=== PATIENT | female | born 1980 | race African-American/Black ===

== ENCOUNTER 2018-02-04 19:28 | Emergency (ER) | payer SELFPAY ==
--- NOTE | 2018-02-04 19:41 | PDOC ---
Rapid Medical Evaluation Chief Complaint: Urinary Problem Time Seen by Provider: 02/04/18 19:40 Medical Evaluation: Allergies Allergy/AdvReac Type Severity Reaction Status Date / Time Penicillins AdvReac Unknown Verified 02/04/18 19:40 02/04/18 19:40 I have performed a brief in-person evaluation of this patient. The patient presents with a chief complaint of: "i think i have uti" , burning, frequency, denies f/c/n/v/d Pertinent physical exam findings: no cvat I have ordered the following: ua, uc, upreg The patient will proceed to the ED for further evaluation. Discharge Disposition - Diagnosis UTI (urinary tract infection) - Referrals - Patient Instructions - Post Discharge Activity
[2018-02-04 19:44] VITALS: BP 166/90; PULSE 84; TEMP 98.4; BMI 29.0
--- NOTE | 2018-02-04 20:20 | PDOC ---
History of Present Illness - General Chief Complaint: Urinary Problem Stated Complaint: PAIN Time Seen by Provider: 02/04/18 19:40 History Source: Patient - History of Present Illness Timing/Duration: reports: other Quality: reports: moderate Past History - Past Medical History Allergies/Adverse Reactions: Allergies Allergy/AdvReac Type Severity Reaction Status Date / Time Penicillins AdvReac Unknown Verified 02/04/18 19:40 Home Medications: Ambulatory Orders No Home Medications 0 dose .ROUTE UTDICT 04/25/14 Nitrofurantoin Monohyd/M-Cryst [Macrobid -] 100 mg PO BID #14 capsule 02/04/18 Anemia: No Asthma: No COPD: No Diabetes: No HTN: No - Surgical History Cholecystectomy: Yes - Family Disease History Family Disease History: Diabetes: Father - Suicide/Smoking/Psychosocial Hx Smoking Status: No Smoking History: Never smoked Have you smoked in the past 12 months: No Number of Cigarettes Smoked Daily: 0 Information on smoking cessation initiated: No Hx Alcohol Use: No Drug/Substance Use Hx: No Substance Use Type: None Review of Systems - Review of Systems Constitutional: No: Chills, Fever ABD/GI: No: Nausea, Vomiting : Yes: Burning, Dysuria, Hematuria. No: Flank Pain *Physical Exam - Vital Signs Last Vital Signs Temp Pulse Resp BP Pulse Ox 98.4 F 84 16 166/90 100 02/04/18 19:40 02/04/18 19:40 02/04/18 19:40 02/04/18 19:40 02/04/18 19:40 - Physical Exam General Appearance: Yes: Appropriately Dressed. No: Apparent Distress HEENT: positive: Normal Voice Neck: positive: Supple Respiratory/Chest: negative: Respiratory Distress Gastrointestinal/Abdominal: positive: Soft. negative: Tender Musculoskeletal: negative: CVA Tenderness Integumentary: positive: Dry, Warm Neurologic: positive: Fully Oriented, Alert, Normal Mood/Affect Medical Decision Making - Medical Decision Making 02/04/18 20:18 37-year-old female, no significant history here with dysuria with hematuria 2 days. No flank pain, nausea, vomiting, fever or chills. No history of kidney stone. No abnormal vaginal discharge. Patient well-appearing and stable with UA w/ 3+ LE. Urine culture sent. DC with antibiotics (no prior sensitivity on records here) 02/04/18 20:53 *DC/Admit/Observation/Transfer Diagnosis at time of Disposition: UTI (urinary tract infection) Qualifiers: Urinary tract infection type: acute cystitis Hematuria presence: with hematuria Qualified Code(s): N30.01 - Acute cystitis with hematuria - Discharge Dispostion Disposition: HOME Condition at time of disposition: Good - Prescriptions Prescriptions: Nitrofurantoin Monohyd/M-Cryst [Macrobid -] 100 mg PO BID #14 capsule - Referrals - Patient Instructions Printed Discharge Instructions: DI for Urinary Tract Infection (UTI) Additional Instructions: Your urine is suggestive of a UTI. We sent a test called urine culture which will show us the name of the bacteria that is causing the infection. You can call for the results in 2-3 days. In the meantime take antibiotics as prescribed - Post Discharge Activity
[2018-02-04 20:24] LABS: HCG,QUALITATIVE URINE NEGATIVE
[2018-02-04 20:25] LABS: URINE APPEARANCE CLOUDY; URINE BILIRUBIN NEGATIVE (<2.0 mg/dL); URINE BLOOD 3+ (NEGATIVE); URINE COLOR YELLOW; URINE GLUCOSE (UA) NEGATIVE (NEGATIVE); URINE KETONE NEGATIVE (NEGATIVE); URINE NITRITE NEGATIVE (NEGATIVE); URINE UROBILINOGEN NEGATIVE mg/dL (0.2-1.0)
[2018-02-04 20:50] LABS: URINE LEUK ESTERASE 3+ (NEGATIVE); URINE PROTEIN 3+ (NEGATIVE)
[2018-02-04 20:51] LABS: URINE MUCUS MANY
== END 2018-02-04 20:54 | disposition home or self-care (01) ==
LOC: JERFT 19:28
DX: N30.01 Acute cystitis with hematuria (principal)
CPT/HCPCS: 81003; 81015; 84703; 87086; 87186; 99281-25

== ENCOUNTER 2019-04-12 17:38 | Emergency (ER) | payer SELFPAY | END 2019-04-12 21:20 | disposition home or self-care (01) | LOC: JER 17:38 ==

== ENCOUNTER 2022-11-15 08:25 | Inpatient (IN) | payer OTHER ==
[2022-11-15 08:39] VITALS: BMI 30.7
[2022-11-15] MEDS ORDERED: LIDOCAINE 5% TOPICAL PATCH TP ONE (08:51)
[2022-11-15] MEDS ORDERED: KETOROLAC TROMETHAMINE 15 MG/ML VIAL IM ONE (08:51)
[2022-11-15] MEDS ORDERED: ACETAMINOPHEN 325 MG TABLET (FP) PO ONE (08:51)
[2022-11-15] MEDS ORDERED: KETOROLAC TROMETHAMINE 15 MG/ML VIAL IVPUSH ONE (09:12)
[2022-11-15] MEDS ORDERED: ACETAMINOPHEN 325 MG TABLET (FP) ONE (09:15)
[2022-11-15] MEDS ORDERED: KETOROLAC TROMETHAMINE 15 MG/ML VIAL ONE (09:15)
[2022-11-15] MEDS ORDERED: LIDOCAINE 5% TOPICAL PATCH ONE (09:15)
[2022-11-15 09:43] LABS: BASO % 1.5 % (0-2.0); EOS % 0.5 % (0-4.5); HEMATOCRIT 23.7 % (32.4-45.2); MCHC 29.4 g/dl (32.0-36.0); MEAN CELL VOLUME 54.5 fl (80-96); MEAN PLT VOLUME 9.1 fl (7.5-11.1); MONO % 6.8 % (3.8-10.2); NEUT % 80.2 % (42.8-82.8); PLATELET COUNT 369 10^3/uL (134-434); RBC 4.35 M/mm3 (3.60-5.2); RDW 20.6 % (11.6-15.6); WHITE BLOOD COUNT 11.4 K/mm3 (4.0-10.0)
[2022-11-15 09:45] LABS: INR 1.26 (0.83-1.09); PROTHROMBIN TIME (PATIENT) 14.5 SEC (9.7-13.0)
[2022-11-15 09:47] LABS: ACTIVATED PTT 28.2 SECONDS (25.2-36.5)
[2022-11-15 10:20] LABS: CALCIUM 8.9 mg/dL (8.5-10.1)
[2022-11-15 10:21] LABS: ALBUMIN 3.6 g/dl (3.4-5.0); BLOOD UREA NITROGEN 17.7 mg/dL (7-18)
[2022-11-15 10:24] LABS: CREATININE 0.9 mg/dL (0.55-1.3)
[2022-11-15 10:26] LABS: BILIRUBIN,TOTAL 0.5 mg/dL (0.2-1); TOT PROT 7.4 g/dl (6.4-8.2)
[2022-11-15 10:29] LABS: ANISOCYTOSIS 3+; MACROCYTOSIS 0; OVALOCYTE 2+
[2022-11-15] MEDS ORDERED: ENOXAPARIN NA (PORCINE) 80 MG/0.8 ML DISP.SYRIN SQ ONE (13:22)
[2022-11-15] MEDS: ENOXAPARIN NA (PORCINE) 80 MG/0.8 ML DISP.SYRIN SQ SCH ×2 (13:35→21:47)
[2022-11-15 14:48] LABS: RETICULOCYTES 1.72 % (0.5-1.5)
[2022-11-15] MEDS ORDERED: IRON SUCROSE INJECTION 200 MG in SODIUM CHLORIDE 90 ML IVPB ONE (15:00)
[2022-11-15] MEDS: ACETAMINOPHEN 325 MG TABLET (FP) PO PRN ×2 (17:33→21:54)
[2022-11-15] MEDS: LIDOCAINE PATCH REMOVAL MC SCH (21:47)
[2022-11-16] MEDS: ENOXAPARIN NA (PORCINE) 80 MG/0.8 ML DISP.SYRIN SQ SCH ×2 (09:14→21:33)
[2022-11-16 09:27] LABS: BASO % 1.3 % (0-2.0); EOS % 1.6 % (0-4.5); HEMATOCRIT 22.2 % (32.4-45.2); LYMPH % 11.9 % (8-40); MCHC 29.8 g/dl (32.0-36.0); MEAN CELL VOLUME 54.3 fl (80-96); MEAN PLT VOLUME 8.3 fl (7.5-11.1); MONO % 6.7 % (3.8-10.2); NEUT % 78.5 % (42.8-82.8); PLATELET COUNT 364 10^3/uL (134-434); RBC 4.09 M/mm3 (3.60-5.2); RDW 20.5 % (11.6-15.6); WHITE BLOOD COUNT 10.3 K/mm3 (4.0-10.0)
[2022-11-16] MEDS: ACETAMINOPHEN 325 MG TABLET (FP) PO PRN ×3 (09:30→20:37)
[2022-11-16 09:35] LABS: MCH 16.2 pg (25.7-33.7)
[2022-11-16 09:37] LABS: HEMOGLOBIN 6.6 GM/dL (10.7-15.3)
[2022-11-16] MEDS ORDERED: IRON SUCROSE INJECTION 200 MG in SODIUM CHLORIDE 90 ML IVPB ONE (10:00)
[2022-11-16 10:01] LABS: ALBUMIN 3.1 g/dl (3.4-5.0); BLOOD UREA NITROGEN 13.4 mg/dL (7-18); PHOSPHOROUS 2.9 mg/dL (2.5-4.9)
[2022-11-16 10:02] LABS: BILIRUBIN,TOTAL 0.5 mg/dL (0.2-1); CALCIUM 8.7 mg/dL (8.5-10.1)
[2022-11-16 10:03] LABS: MAGNESIUM 2.2 mg/dL (1.8-2.4)
[2022-11-16 10:04] LABS: CREATININE 0.7 mg/dL (0.55-1.3)
[2022-11-16 10:38] LABS: ERYTHROCYTE SEDIMENTATION RATE 60 mm/hr (0-20)
[2022-11-16] MEDS: LIDOCAINE PATCH REMOVAL MC SCH (22:28)
[2022-11-16] MEDS: MELATONIN 5 MG TABLETS PO PRN (22:35)
[2022-11-17 09:37] LABS: BASO % 1.3 % (0-2.0); EOS % 0.5 % (0-4.5); HEMATOCRIT 25.6 % (32.4-45.2); HEMOGLOBIN 7.6 GM/dL (10.7-15.3); LYMPH % 13.9 % (8-40); MCHC 29.8 g/dl (32.0-36.0); MEAN PLT VOLUME 8.8 fl (7.5-11.1); MONO % 7.3 % (3.8-10.2); PLATELET COUNT 460 10^3/uL (134-434); RBC 4.49 M/mm3 (3.60-5.2); RDW 22.7 % (11.6-15.6); WHITE BLOOD COUNT 14.7 K/mm3 (4.0-10.0)
[2022-11-17] MEDS: ENOXAPARIN NA (PORCINE) 80 MG/0.8 ML DISP.SYRIN SQ SCH ×2 (09:37→21:14)
[2022-11-17] MEDS ORDERED: IRON SUCROSE INJECTION 200 MG in SODIUM CHLORIDE 90 ML IVPB ONE (10:00)
[2022-11-17 10:01] LABS: CALCIUM 8.9 mg/dL (8.5-10.1)
[2022-11-17 10:02] LABS: ALBUMIN 3.4 g/dl (3.4-5.0); BLOOD UREA NITROGEN 10.4 mg/dL (7-18)
[2022-11-17 10:05] LABS: CREATININE 0.8 mg/dL (0.55-1.3)
[2022-11-17 10:07] LABS: BILIRUBIN,TOTAL 0.5 mg/dL (0.2-1); TOT PROT 7.6 g/dl (6.4-8.2)
[2022-11-17] MEDS ORDERED: LORazepam 2 MG/ML SDV VIAL IVPUSH ONE (14:15)
[2022-11-17] MEDS: POLYETHYLENE GLYCOL (HEALTHYLAX) 3350 17 GM PACKET PO SCH (14:24)
[2022-11-17] MEDS ORDERED: DOCUSATE SODIUM 100 MG CAPSULE (FP) PO ONE (20:47)
[2022-11-17] MEDS ORDERED: POLYETHYLENE GLYCOL (HEALTHYLAX) 3350 17 GM PACKET PO SCH (21:00)
[2022-11-17] MEDS: LIDOCAINE PATCH REMOVAL MC SCH (21:15)
[2022-11-18] MEDS: ACETAMINOPHEN 325 MG TABLET (FP) PO PRN (04:23)
[2022-11-18 09:14] LABS: HEMOGLOBIN 7.2 GM/dL (10.7-15.3); MEAN CELL VOLUME 57.9 fl (80-96); MEAN PLT VOLUME 9.1 fl (7.5-11.1); PLATELET COUNT 464 10^3/uL (134-434); RBC 4.15 M/mm3 (3.60-5.2); RDW 22.5 % (11.6-15.6); WHITE BLOOD COUNT 11.6 K/mm3 (4.0-10.0)
[2022-11-18 09:15] LABS: MCH 17.3 pg (25.7-33.7)
[2022-11-18 09:38] LABS: BLOOD UREA NITROGEN 13.2 mg/dL (7-18); CALCIUM 8.8 mg/dL (8.5-10.1)
[2022-11-18 09:41] LABS: CREATININE 0.8 mg/dL (0.55-1.3)
[2022-11-18 09:43] LABS: BILIRUBIN,TOTAL 0.4 mg/dL (0.2-1)
[2022-11-18] MEDS: ENOXAPARIN NA (PORCINE) 80 MG/0.8 ML DISP.SYRIN SQ SCH ×2 (11:06→21:01)
[2022-11-18] MEDS: POLYETHYLENE GLYCOL (HEALTHYLAX) 3350 17 GM PACKET PO SCH (11:07)
[2022-11-18] MEDS: LIDOCAINE PATCH REMOVAL MC SCH (21:00)
[2022-11-19] MEDS: MELATONIN 5 MG TABLETS PO PRN ×2 (01:00→21:16)
[2022-11-19 09:00] LABS: HEMATOCRIT 24.8 % (32.4-45.2); HEMOGLOBIN 7.4 GM/dL (10.7-15.3); MCHC 29.8 g/dl (32.0-36.0); MEAN CELL VOLUME 58.2 fl (80-96); PLATELET COUNT 518 10^3/uL (134-434); RBC 4.27 M/mm3 (3.60-5.2); RDW 22.6 % (11.6-15.6); WHITE BLOOD COUNT 11.3 K/mm3 (4.0-10.0)
[2022-11-19 09:05] LABS: MCH 17.3 pg (25.7-33.7)
[2022-11-19] MEDS: POLYETHYLENE GLYCOL (HEALTHYLAX) 3350 17 GM PACKET PO SCH (10:02)
[2022-11-19] MEDS: ENOXAPARIN NA (PORCINE) 80 MG/0.8 ML DISP.SYRIN SQ SCH (10:04)
[2022-11-19 10:38] LABS: BILIRUBIN,TOTAL 0.5 mg/dL (0.2-1); CALCIUM 8.8 mg/dL (8.5-10.1); TOT PROT 7.2 g/dl (6.4-8.2)
[2022-11-19 10:39] LABS: CREATININE 0.8 mg/dL (0.55-1.3); MAGNESIUM 2.3 mg/dL (1.8-2.4); PHOSPHOROUS 3.9 mg/dL (2.5-4.9)
[2022-11-19] MEDS ORDERED: oxyCODONE HCL 5 MG TABLET PO PRN (14:05)
[2022-11-19] MEDS ORDERED: HEPARIN NA (PORCINE) 5,000 UNITS/ML 1ML VIAL IVPUSH PRN ×2 (14:27)
[2022-11-19] MEDS: HEPARIN INFUSION - 25,000 UNITS/500 ML INFUS.BAG IVPB SCH (15:48)
[2022-11-19] MEDS: ACETAMINOPHEN 325 MG TABLET (FP) PO PRN (21:15)
[2022-11-19] MEDS: LIDOCAINE PATCH REMOVAL MC SCH (21:18)
[2022-11-19] MEDS: HEPARIN NA (PORCINE) 5,000 UNITS/ML 1ML VIAL IVPUSH PRN (23:02)
[2022-11-20] MEDS: HEPARIN NA (PORCINE) 5,000 UNITS/ML 1ML VIAL IVPUSH PRN ×3 (06:53→23:11)
[2022-11-20 09:36] LABS: HEMATOCRIT 25.5 % (32.4-45.2); HEMOGLOBIN 7.7 GM/dL (10.7-15.3); MCHC 30.1 g/dl (32.0-36.0); MEAN CELL VOLUME 58.7 fl (80-96); MEAN PLT VOLUME 9.3 fl (7.5-11.1); PLATELET COUNT 493 10^3/uL (134-434); RBC 4.35 M/mm3 (3.60-5.2); RDW 23.4 % (11.6-15.6); WHITE BLOOD COUNT 9.3 K/mm3 (4.0-10.0)
[2022-11-20 09:42] LABS: MCH 17.7 pg (25.7-33.7)
[2022-11-20] MEDS: POLYETHYLENE GLYCOL (HEALTHYLAX) 3350 17 GM PACKET PO SCH (10:05)
[2022-11-20] MEDS: PANTOPRAZOLE SODIUM 40 MG VIAL IVPUSH SCH (11:05)
[2022-11-20] MEDS: HEPARIN INFUSION - 25,000 UNITS/500 ML INFUS.BAG IVPB SCH (14:23)
[2022-11-20] MEDS ORDERED: ALPRAZolam 1 MG TABLET PO PRN (18:00)
[2022-11-21] MEDS: PANTOPRAZOLE SODIUM 40 MG VIAL IVPUSH SCH (09:00)
[2022-11-21] MEDS: POLYETHYLENE GLYCOL (HEALTHYLAX) 3350 17 GM PACKET PO SCH (09:08)
[2022-11-21] MEDS ORDERED: PROPOFOL 20 ML ONE (09:46)
[2022-11-21] MEDS ORDERED: MIDAZOLAM HCL 2 MG/2 ML SINGLE DOSE VIAL ONE (09:47)
[2022-11-21] MEDS ORDERED: ALTEPLASE (CATHFLO) 2 MG/2 ML VIAL NR ONE (10:00)
[2022-11-21] MEDS ORDERED: BUPIVACAINE HCL/PF 0.5% (5MG/ML) 10 ML VIAL ONE (10:09)
[2022-11-21] MEDS ORDERED: LIDOCAINE HCL 1%, 10 MG/ML (20ML VIAL) ONE (10:09)
[2022-11-21] MEDS ORDERED: POVIDONE-IODINE OINTMENT 10% - 28.4 GM TUBE ONE (10:10)
[2022-11-21] MEDS ORDERED: DEXAMETHASONE SOD PHOSPHATE 4 MG/1 ML VIAL ONE ×2 (10:56→11:46)
[2022-11-21] MEDS ORDERED: ceFAZolin SODIUM 1 GM VIAL ONE (10:56)
[2022-11-21] MEDS ORDERED: ceFAZolin SODIUM 1 GM VIAL IVPB ONE (10:58)
[2022-11-21] MEDS ORDERED: PROPOFOL 40 ML ONE (11:02)
[2022-11-21] MEDS ORDERED: HEPARIN NA (PORCINE) 5,000 UNITS/ML 1ML VIAL ONE (11:08)
[2022-11-21] MEDS ORDERED: ALTEPLASE (CATHFLO) 2 MG/2 ML VIAL CVP ONE (11:42)
[2022-11-21] MEDS ORDERED: LIDOCAINE HCL 1%, 10 MG/ML (20ML VIAL) NR ONE ×2 (11:43)
[2022-11-21] MEDS ORDERED: BUPIVACAINE HCL/PF 0.5% (5MG/ML) 10 ML VIAL NR ONE ×2 (11:44)
[2022-11-21] MEDS ORDERED: HEPARIN NA (PORCINE) 5,000 UNITS/ML 1ML VIAL SQ ONE (11:44)
[2022-11-21] MEDS ORDERED: ONDANSETRON 4 MG/2 ML VIAL ONE (11:46)
[2022-11-21] MEDS ORDERED: PROMETHAZINE HCL 25 MG/1 ML VIAL IVPUSH PRN (12:02)
[2022-11-21] MEDS ORDERED: ONDANSETRON 4 MG/2 ML VIAL IVPUSH PRN (12:02)
[2022-11-21] MEDS ORDERED: HEPARIN NA (PORCINE) 5,000 UNITS/ML 1ML VIAL IVPUSH PRN ×2 (12:09)
[2022-11-21] MEDS: HEPARIN NA (PORCINE) 5,000 UNITS/ML 1ML VIAL IVPUSH PRN ×2 (12:14→12:15)
[2022-11-21] MEDS: HEPARIN INFUSION - 25,000 UNITS/500 ML INFUS.BAG IVPB SCH ×2 (12:15→19:02)
[2022-11-21] MEDS ORDERED: LACTATED RINGERS SOLUTION 1,000 ML IV SCH (12:15)
[2022-11-21] MEDS ORDERED: ACETAMINOPHEN 325 MG TABLET (FP) PO PRN (12:24)
[2022-11-21 18:36] LABS: HEMATOCRIT 24.4 % (32.4-45.2); HEMOGLOBIN 7.2 GM/dL (10.7-15.3); MCHC 29.6 g/dl (32.0-36.0); MEAN CELL VOLUME 59.8 fl (80-96); MEAN PLT VOLUME 8.4 fl (7.5-11.1); PLATELET COUNT 496 10^3/uL (134-434); RBC 4.08 M/mm3 (3.60-5.2); WHITE BLOOD COUNT 12.7 K/mm3 (4.0-10.0)
[2022-11-21 18:41] LABS: MCH 17.7 pg (25.7-33.7)
[2022-11-21 18:51] LABS: ALBUMIN 2.8 g/dl (3.4-5.0); CALCIUM 8.7 mg/dL (8.5-10.1)
[2022-11-21 18:53] LABS: BLOOD UREA NITROGEN 11.7 mg/dL (7-18)
[2022-11-21 18:56] LABS: CREATININE 0.9 mg/dL (0.55-1.3)
[2022-11-21 18:57] LABS: BILIRUBIN,TOTAL 0.7 mg/dL (0.2-1); TOT PROT 6.8 g/dl (6.4-8.2)
[2022-11-22] MEDS: MELATONIN 5 MG TABLETS PO PRN ×2 (02:54→23:24)
[2022-11-22] MEDS: HEPARIN NA (PORCINE) 5,000 UNITS/ML 1ML VIAL IVPUSH PRN (03:27)
[2022-11-22] MEDS ORDERED: IRON SUCROSE INJECTION 100 MG in SODIUM CHLORIDE 95 ML IVPB ONE (08:02)
[2022-11-22] MEDS ORDERED: HEPARIN NA (PORCINE) 5,000 UNITS/ML 1ML VIAL IVPUSH ONE (08:04)
[2022-11-22] MEDS ORDERED: HEPARIN NA (PORCINE) 5,000 UNITS/ML 1ML VIAL IVPUSH PRN ×2 (08:04)
[2022-11-22 09:20] LABS: HEMATOCRIT 24.1 % (32.4-45.2); MCHC 29.2 g/dl (32.0-36.0); MEAN CELL VOLUME 61.3 fl (80-96); MEAN PLT VOLUME 8.8 fl (7.5-11.1); PLATELET COUNT 504 10^3/uL (134-434); RBC 3.93 M/mm3 (3.60-5.2); RDW 25.9 % (11.6-15.6); WHITE BLOOD COUNT 12.7 K/mm3 (4.0-10.0)
[2022-11-22 09:26] LABS: MCH 17.9 pg (25.7-33.7)
[2022-11-22 09:33] LABS: CALCIUM 8.6 mg/dL (8.5-10.1)
[2022-11-22 09:37] LABS: CREATININE 0.7 mg/dL (0.55-1.3)
[2022-11-22] MEDS: HEPARIN INFUSION - 25,000 UNITS/500 ML INFUS.BAG IVPB SCH (10:00)
[2022-11-22] MEDS ORDERED: APIXABAN 5 MG TABLET PO SCH (10:00)
[2022-11-22] MEDS: POLYETHYLENE GLYCOL (HEALTHYLAX) 3350 17 GM PACKET PO SCH (10:25)
[2022-11-22] MEDS: PANTOPRAZOLE SODIUM 40 MG VIAL IVPUSH SCH (11:00)
[2022-11-22 11:12] VITALS: RESP 18
[2022-11-22 12:25] LABS: ALBUMIN 2.8 g/dl (3.4-5.0)
[2022-11-22 12:27] LABS: BILIRUBIN,DIRECT 0.2 mg/dL (0.0-0.2)
[2022-11-22 12:30] LABS: BILIRUBIN,TOTAL 0.2 mg/dL (0.2-1); TOT PROT 6.4 g/dl (6.4-8.2)
[2022-11-22 19:25] LABS: HEMATOCRIT 25.9 % (32.4-45.2); HEMOGLOBIN 7.9 GM/dL (10.7-15.3); MCHC 30.3 g/dl (32.0-36.0); MEAN CELL VOLUME 63.7 fl (80-96); PLATELET COUNT 548 10^3/uL (134-434); RBC 4.07 M/mm3 (3.60-5.2); RDW 31.9 % (11.6-15.6); WHITE BLOOD COUNT 12.9 K/mm3 (4.0-10.0)
[2022-11-22 19:27] LABS: MCH 19.3 pg (25.7-33.7)
[2022-11-22 22:34] LABS: HEMATOCRIT 25.2 % (32.4-45.2); HEMOGLOBIN 7.6 GM/dL (10.7-15.3); MCHC 30.2 g/dl (32.0-36.0); MEAN CELL VOLUME 63.9 fl (80-96); MEAN PLT VOLUME 8.5 fl (7.5-11.1); PLATELET COUNT 517 10^3/uL (134-434); RBC 3.95 M/mm3 (3.60-5.2); RDW 31.2 % (11.6-15.6); WHITE BLOOD COUNT 11.7 K/mm3 (4.0-10.0)
[2022-11-22 22:36] LABS: MCH 19.3 pg (25.7-33.7)
[2022-11-23] MEDS: HEPARIN INFUSION - 25,000 UNITS/500 ML INFUS.BAG IVPB SCH (09:39)
[2022-11-23 09:41] LABS: HEMATOCRIT 26.5 % (32.4-45.2); MCH 19.2 pg (25.7-33.7); MCHC 30.1 g/dl (32.0-36.0); MEAN CELL VOLUME 63.7 fl (80-96); MEAN PLT VOLUME 8.4 fl (7.5-11.1); PLATELET COUNT 515 10^3/uL (134-434); RBC 4.16 M/mm3 (3.60-5.2); RDW 31.1 % (11.6-15.6); WHITE BLOOD COUNT 11.2 K/mm3 (4.0-10.0)
[2022-11-23] MEDS: PANTOPRAZOLE SODIUM 40 MG VIAL IVPUSH SCH (09:44)
[2022-11-23] MEDS: POLYETHYLENE GLYCOL (HEALTHYLAX) 3350 17 GM PACKET PO SCH (09:44)
[2022-11-23 10:12] LABS: ALBUMIN 2.7 g/dl (3.4-5.0); BLOOD UREA NITROGEN 11.2 mg/dL (7-18); CALCIUM 8.7 mg/dL (8.5-10.1)
[2022-11-23 10:14] LABS: CREATININE 0.8 mg/dL (0.55-1.3)
[2022-11-23 10:16] LABS: BILIRUBIN,TOTAL 0.2 mg/dL (0.2-1); TOT PROT 6.2 g/dl (6.4-8.2)
[2022-11-23] MEDS ORDERED: IRON SUCROSE INJECTION 100 MG in SODIUM CHLORIDE 95 ML IVPB ONE (12:00)
[2022-11-24] MEDS: HEPARIN INFUSION - 25,000 UNITS/500 ML INFUS.BAG IVPB SCH (07:21)
[2022-11-24] MEDS: POLYETHYLENE GLYCOL (HEALTHYLAX) 3350 17 GM PACKET PO SCH (09:15)
[2022-11-24] MEDS: PANTOPRAZOLE SODIUM 40 MG VIAL IVPUSH SCH (09:15)
[2022-11-24 09:25] LABS: HEMATOCRIT 29.9 % (32.4-45.2); HEMOGLOBIN 8.8 GM/dL (10.7-15.3); MCHC 29.3 g/dl (32.0-36.0); MEAN CELL VOLUME 65.5 fl (80-96); MEAN PLT VOLUME 9.1 fl (7.5-11.1); PLATELET COUNT 631 10^3/uL (134-434); RBC 4.57 M/mm3 (3.60-5.2); WHITE BLOOD COUNT 10.5 K/mm3 (4.0-10.0)
[2022-11-24 09:26] LABS: MCH 19.2 pg (25.7-33.7)
[2022-11-24] MEDS ORDERED: BISACODYL 5 MG TABLET.DR (FP) PO ONE (16:00)
[2022-11-24] MEDS ORDERED: PEG 3350/NA SULF BICARB CL/KCL 4000 ML SOLN.RECON PO ONE (17:00)
[2022-11-25 09:42] LABS: EOS % 1.1 % (0-4.5); HEMATOCRIT 28.7 % (32.4-45.2); LYMPH % 15.7 % (8-40); MCH 20.4 pg (25.7-33.7); MCHC 31.2 g/dl (32.0-36.0); MEAN CELL VOLUME 65.4 fl (80-96); MEAN PLT VOLUME 8.4 fl (7.5-11.1); MONO % 6.4 % (3.8-10.2); NEUT % 74.8 % (42.8-82.8); PLATELET COUNT 574 10^3/uL (134-434); RBC 4.38 M/mm3 (3.60-5.2); WHITE BLOOD COUNT 9.3 K/mm3 (4.0-10.0)
[2022-11-25 09:47] LABS: INR 1.22 (0.83-1.09); PROTHROMBIN TIME (PATIENT) 14.1 SEC (9.7-13.0)
[2022-11-25 09:50] LABS: ACTIVATED PTT 33.2 SECONDS (25.2-36.5)
[2022-11-25] MEDS: POLYETHYLENE GLYCOL (HEALTHYLAX) 3350 17 GM PACKET PO SCH (10:07)
[2022-11-25] MEDS: PANTOPRAZOLE SODIUM 40 MG VIAL IVPUSH SCH (10:08)
[2022-11-25 10:14] LABS: CALCIUM 9.1 mg/dL (8.5-10.1)
[2022-11-25 10:15] LABS: BLOOD UREA NITROGEN 8.1 mg/dL (7-18)
[2022-11-25 10:16] LABS: ANISOCYTOSIS 3+; MACROCYTOSIS 0; OVALOCYTE 1+
[2022-11-25 10:18] LABS: CREATININE 0.8 mg/dL (0.55-1.3)
[2022-11-25] MEDS ORDERED: ACETAMINOPHEN 325 MG TABLET (FP) PO PRN (13:04)
[2022-11-25] MEDS: ACETAMINOPHEN 325 MG TABLET (FP) PO PRN ×2 (13:26→22:17)
[2022-11-25] MEDS: HEPARIN INFUSION - 25,000 UNITS/500 ML INFUS.BAG IVPB SCH (13:42)
[2022-11-25 13:54] LABS: HEMATOCRIT 28.3 % (32.4-45.2); HEMOGLOBIN 8.6 GM/dL (10.7-15.3); MCHC 30.4 g/dl (32.0-36.0); MEAN CELL VOLUME 65.8 fl (80-96); MEAN PLT VOLUME 8.5 fl (7.5-11.1); PLATELET COUNT 562 10^3/uL (134-434); RDW 33.4 % (11.6-15.6); WHITE BLOOD COUNT 10.5 K/mm3 (4.0-10.0)
[2022-11-26] MEDS: HEPARIN INFUSION - 25,000 UNITS/500 ML INFUS.BAG IVPB SCH ×2 (00:10→16:26)
[2022-11-26] MEDS: POLYETHYLENE GLYCOL (HEALTHYLAX) 3350 17 GM PACKET PO SCH (10:19)
[2022-11-26 10:21] LABS: HEMATOCRIT 30.5 % (32.4-45.2); MCH 19.6 pg (25.7-33.7); MCHC 29.5 g/dl (32.0-36.0); MEAN CELL VOLUME 66.4 fl (80-96); MEAN PLT VOLUME 9.1 fl (7.5-11.1); PLATELET COUNT 550 10^3/uL (134-434); RBC 4.59 M/mm3 (3.60-5.2); RDW 34.8 % (11.6-15.6); WHITE BLOOD COUNT 11.6 K/mm3 (4.0-10.0)
[2022-11-26] MEDS: PANTOPRAZOLE SODIUM 40 MG VIAL IVPUSH SCH (11:00)
[2022-11-26 18:30] VITALS: BP 142/73; PULSE 81; TEMP 98
[2022-11-28 13:07] LABS: APTT 27.7 sec (.); B2-GLYCOPROTEIN IGA <10 SAU (.); B2-GLYCOPROTEIN IGG <10 SGU (.); B2-GLYCOPROTEIN IGM <10 SMU (.); CARDIOLIPIN AB IGA <10 APL (.); HEXAGONAL PHOSPHOLIPID NEUTRAL 2 sec (.)
== END 2022-11-26 19:19 | disposition home or self-care (01) | DRG 252 ==
LOC: JER 08:25 → JERBED 10:30 → J6S 17:14
PROVIDERS: ADMIT Internal Medicine; ATTEND Internal Medicine
PROC: 30233N1 Transfusion of Nonautologous Red Blood Cells into Peripheral Vein, Percutaneous Approach (ICD-10-PCS; 2022-11-16)
PROC: 06QN0ZZ Repair Left Femoral Vein, Open Approach (ICD-10-PCS; 2022-11-21)
PROC: 06QD0ZZ Repair Left Common Iliac Vein, Open Approach (ICD-10-PCS; 2022-11-21)
PROC: B51CZZZ Fluoroscopy of Left Lower Extremity Veins (ICD-10-PCS; 2022-11-21)
PROC: 3E05317 Introduction of Other Thrombolytic into Peripheral Artery, Percutaneous Approach (ICD-10-PCS; 2022-11-21)
PROC: 04FL3Z0 Fragmentation of Left Femoral Artery, Percutaneous Approach, Ultrasonic (ICD-10-PCS; principal; 2022-11-21 10:00)
PROC: 0DB98ZX Excision of Duodenum, Via Natural or Artificial Opening Endoscopic, Diagnostic (ICD-10-PCS; 2022-11-25)
PROC: 0DB68ZX Excision of Stomach, Via Natural or Artificial Opening Endoscopic, Diagnostic (ICD-10-PCS; 2022-11-25)
PROC: 0DBE8ZX Excision of Large Intestine, Via Natural or Artificial Opening Endoscopic, Diagnostic (ICD-10-PCS; 2022-11-25)
PROC: 0W3P8ZZ Control Bleeding in Gastrointestinal Tract, Via Natural or Artificial Opening Endoscopic (ICD-10-PCS; 2022-11-25)
DX: I82.412 Acute embolism and thrombosis of left femoral vein (principal); I26.99 Other pulmonary embolism without acute cor pulmonale; I82.422 Acute embolism and thrombosis of left iliac vein; K21.9 Gastro-esophageal reflux disease without esophagitis; K44.9 Diaphragmatic hernia without obstruction or gangrene; D50.9 Iron deficiency anemia, unspecified; D25.9 Leiomyoma of uterus, unspecified; D75.839 Thrombocytosis, unspecified; R74.01 Elevation of levels of liver transaminase levels; B96.81 Helicobacter pylori [H. pylori] as the cause of diseases classified elsewhere; K29.50 Unspecified chronic gastritis without bleeding; D12.6 Benign neoplasm of colon, unspecified; K64.8 Other hemorrhoids; K76.0 Fatty (change of) liver, not elsewhere classified
CPT/HCPCS: 36415; 36430; 71046-TC-FY; 72196-TC; 74174-TC; 74183-TC; 76000-TC-FY; 76700-TC; 76856-TC; 80048; 80053; 80076; 81025; 81241; 82272; 82550; 82553; 82728; 83516; 83540; 83550; 83735; 84100; 84146; 84443; 84703; 85025; 85027; 85045; 85303; 85597; 85610; 85651; 85730; 86038; 86146; 86147; 86301; 86304; 86704; 86803; 86850; 86900; 86901; 86922; 87340; 87517; 88305-TC; 88341-TC; 93005; 93010; 93971-TC; 93975; 94760; 97116-GP; 97162-GP; 99285-25; A9579; C9803-CS; J1644; J1756; J2997; P9058; U0003; U0005

== ENCOUNTER 2022-12-19 03:52 | Day surgery (SDC) | payer OTHER ==
[2022-12-17 09:32] VITALS: BMI 31.6
[~2022-12-19 03:52] MED LIST: HEPARIN NA (PORCINE) 5,000 UNITS/ML 1ML VIAL IV ONE; LIDOCAINE HCL 1%, 10 MG/ML (20ML VIAL) PNB ONE
[2022-12-19] MEDS ORDERED: HEPARIN NA (PORCINE) 5,000 UNITS/ML 1ML VIAL ONE (10:33)
[2022-12-19] MEDS ORDERED: LIDOCAINE HCL 1%, 10 MG/ML (20ML VIAL) ONE (10:33)
[2022-12-19] MEDS ORDERED: PROPOFOL 20 ML ONE ×2 (14:03→15:00)
[2022-12-19] MEDS ORDERED: MIDAZOLAM HCL 2 MG/2 ML SINGLE DOSE VIAL ONE ×3 (14:03→14:36)
[2022-12-19] MEDS ORDERED: CLINDAMYCIN 600MG PREMIX IVPB 600 MG/50 ML BAG IVPB ONE (14:22)
[2022-12-19] MEDS ORDERED: LIDOCAINE HCL 1%, 10 MG/ML (20ML VIAL) PNB ONE (14:24)
[2022-12-19] MEDS ORDERED: CLINDAMYCIN 600 MG PREMIX BAG IVPB ONE (14:25)
[2022-12-19] MEDS ORDERED: HEPARIN NA (PORCINE) 5,000 UNITS/ML 1ML VIAL IV ONE ×2 (14:34→15:15)
[2022-12-19] MEDS ORDERED: oxyCODONE HCL 5 MG TABLET PO PRN ×2 (15:39→16:44)
[2022-12-19] MEDS ORDERED: ONDANSETRON 4 MG/2 ML VIAL IVPUSH PRN (15:39)
[2022-12-19] MEDS ORDERED: LACTATED RINGERS SOLUTION 1,000 ML IV SCH (15:45)
[2022-12-19] MEDS ORDERED: KETOROLAC TROMETHAMINE 30 MG/1 ML VIAL IVPUSH ONE ×2 (16:44→16:49)
[2022-12-19] MEDS ORDERED: KETOROLAC TROMETHAMINE 30 MG/1 ML VIAL ONE (16:47)
[2022-12-19] MEDS ORDERED: oxyCODONE HCL 5 MG TABLET ONE (17:35)
[2022-12-19] MEDS ORDERED: oxyCODONE HCL 5 MG TABLET PO ONE (17:40)
[2022-12-19 17:43] VITALS: RESP 16
[2022-12-19 18:38] VITALS: BP 139/94; PULSE 77; TEMP 97.2
== END 2022-12-19 18:30 | disposition home or self-care (01) ==
LOC: JASU-SURG 03:52
PROVIDERS: ATTEND Surgery Vascular Surgery
PROC: B54CZZ3 Ultrasonography of Left Lower Extremity Veins, Intravascular (ICD-10-PCS; 2022-12-19)
PROC: 067G3DZ Dilation of Left External Iliac Vein with Intraluminal Device, Percutaneous Approach (ICD-10-PCS; 2022-12-19)
PROC: 067G3DZ Dilation of Left External Iliac Vein with Intraluminal Device, Percutaneous Approach (ICD-10-PCS; principal; 2022-12-19 14:00)
DX: I82.422 Acute embolism and thrombosis of left iliac vein (principal)
CPT/HCPCS: 36012; 37187; 37238; 37252; 37253; 75898; C1757; C1876; 76000-TC-FY; 81025; 94760; C1769; J1644

== ENCOUNTER 2023-06-27 06:15 | Day surgery (SDC) | payer OTHER ==
[2023-06-18 14:45] VITALS: BMI 36.8
[2023-06-27] MEDS ORDERED: BUPIVACAINE HCL/PF 2.5 MG/ML - 30 ML VIAL IJ ONE (07:14)
[2023-06-27] MEDS ORDERED: PROPOFOL 20 ML ONE (07:39)
[2023-06-27] MEDS ORDERED: MIDAZOLAM HCL 2 MG/2 ML SINGLE DOSE VIAL ONE (07:40)
[2023-06-27] MEDS ORDERED: SUCCINYLCHOLINE CHLORIDE 200 MG/10 ML SYRINGE ONE (07:40)
[2023-06-27] MEDS ORDERED: ceFAZolin SODIUM 1 GM VIAL ONE (07:54)
[2023-06-27] MEDS ORDERED: ONDANSETRON 4 MG/2 ML VIAL ONE (08:03)
[2023-06-27] MEDS ORDERED: KETOROLAC TROMETHAMINE 30 MG/1 ML VIAL ONE (08:03)
[2023-06-27] MEDS ORDERED: DEXAMETHASONE SOD PHOSPHATE 4 MG/1 ML VIAL ONE (08:03)
[2023-06-27] MEDS ORDERED: oxyCODONE HCL 5 MG TABLET PO PRN (08:51)
[2023-06-27] MEDS ORDERED: ONDANSETRON 4 MG/2 ML VIAL IVPUSH PRN (08:51)
[2023-06-27] MEDS ORDERED: ACETAMINOPHEN 1000 MG/100 ML BAG IVPB ONE (08:51)
[2023-06-27] MEDS ORDERED: LACTATED RINGERS SOLUTION 1,000 ML IV SCH (09:00)
[2023-06-27] MEDS ORDERED: ACETAMINOPHEN 500 MG TABLET (FP) PO ONE (09:30)
[2023-06-27] MEDS ORDERED: oxyCODONE HCL 5 MG TABLET ONE (09:49)
[2023-06-27 10:07] VITALS: RESP 16; TEMP 98.1
[2023-06-27 11:33] VITALS: BP 133/85; PULSE 72
== END 2023-06-27 11:05 | disposition home or self-care (01) ==
LOC: FASU 06:15
PROVIDERS: ATTEND Orthopaedic Surgery Sports Medicine
PROC: 0SBC4ZZ Excision of Right Knee Joint, Percutaneous Endoscopic Approach (ICD-10-PCS; principal; 2023-06-27 08:08)
DX: S83.241A Other tear of medial meniscus, current injury, right knee, initial encounter (principal); M94.261 Chondromalacia, right knee; M65.861 Other synovitis and tenosynovitis, right lower leg; X58.XXXA Exposure to other specified factors, initial encounter; Y93.9 Activity, unspecified; Y92.9 Unspecified place or not applicable
CPT/HCPCS: 81025; 94760

== ENCOUNTER 2024-01-19 21:04 | Emergency (ER) | payer OTHER ==
[2024-01-19 21:12] VITALS: BP 138/63; PULSE 105; RESP 20; TEMP 98; BMI 35.5
[2024-01-20] MEDS ORDERED: KETOROLAC TROMETHAMINE 30 MG/1 ML VIAL ONE (00:28)
[2024-01-20] MEDS: KETOROLAC TROMETHAMINE 30 MG/1 ML VIAL IM ONE (00:34)
== END 2024-01-20 01:23 | disposition home or self-care (01) ==
LOC: JER 21:04
PROC: 3E0233Z Introduction of Anti-inflammatory into Muscle, Percutaneous Approach (ICD-10-PCS; principal; 2024-01-20)
DX: M79.605 Pain in left leg (principal); M71.22 Synovial cyst of popliteal space [Baker], left knee
CPT/HCPCS: 93971-TC; 99284-25

== ENCOUNTER 2024-11-09 15:33 | Observation (INO) | payer OTHER ==
[2024-11-09 16:24] LABS: HEMATOCRIT 22.9 % (32.4-45.2); MCHC 28.7 g/dl (32.0-36.0); MEAN CELL VOLUME 53.8 fl (80-96); MEAN PLT VOLUME 9.3 fl (7.5-11.1); PLATELET COUNT 557.2 10^3/uL (134-434); RBC 4.26 10^6/uL (3.60-5.2); RDW 24.1 % (11.6-15.6)
[2024-11-09 16:25] LABS: MCH 15.4 pg (25.7-33.7)
[2024-11-09 16:27] LABS: HEMOGLOBIN 6.6 G/dL (10.7-15.3)
[2024-11-09 16:32] LABS: INR 1.14 (0.83-1.09)
[2024-11-09 16:42] LABS: ALBUMIN 4.7 g/dl (3.4-5.0); BILIRUBIN,TOTAL 0.3 mg/dl (0.2-1); CALCIUM 9.7 mg/dl (8.5-10.1); CREATININE 0.8 mg/dl (0.6-1.3); POTASSIUM 4.1 mmol/L (3.5-5.1); TOT PROT 7.7 g/dl (6.4-8.2)
[2024-11-09 17:30] LABS: PLATELET ESTIMATE INCREASED
[2024-11-09 19:05] LABS: HIV INTERPRETATION NEGATIVE (NEGATIVE)
[2024-11-09] MEDS: DOCUSATE SODIUM 100 MG CAPSULE (FP) PO SCH (22:01)
[2024-11-09 23:24] VITALS: BMI 32.7
[2024-11-10 00:17] VITALS: RESP 18
[2024-11-10 08:55] LABS: CALCIUM 8.9 mg/dl (8.5-10.1); CREATININE 0.8 mg/dl (0.6-1.3); POTASSIUM 4.3 mmol/L (3.5-5.1)
[2024-11-10] MEDS: PANTOPRAZOLE 40 MG TABLET PO SCH (09:41)
[2024-11-10] MEDS: FERROUS SO4 325 MG TABLET (FP) PO SCH (09:41)
[2024-11-10 10:10] VITALS: BP 127/68; PULSE 79; TEMP 98
[2024-11-10 13:05] LABS: HEMATOCRIT 27.4 % (32.4-45.2); HEMOGLOBIN 8.1 GM/dL (10.7-15.3); MCHC 29.4 g/dl (32.0-36.0); MEAN PLT VOLUME 9.1 fl (7.5-11.1); PLATELET COUNT 446 10^3/uL (134-434); RBC 4.73 M/mm3 (3.60-5.2); RDW 30.4 % (11.6-15.6); WHITE BLOOD COUNT 9.7 K/mm3 (4.0-10.0)
[2024-11-10 14:32] LABS: ANISOCYTOSIS 2+; MACROCYTOSIS 0; OVALOCYTE 1+
== END 2024-11-10 12:33 | disposition home or self-care (01) ==
LOC: FER 15:33 → FM/S 19:59
PROVIDERS: ADMIT Internal Medicine
PROC: 30233N1 Transfusion of Nonautologous Red Blood Cells into Peripheral Vein, Percutaneous Approach (ICD-10-PCS; principal; 2024-11-09)
DX: D50.9 Iron deficiency anemia, unspecified (principal); R79.89 Other specified abnormal findings of blood chemistry; R42 Dizziness and giddiness; D72.0 Genetic anomalies of leukocytes; Z86.718 Personal history of other venous thrombosis and embolism; Z88.0 Allergy status to penicillin; Z86.711 Personal history of pulmonary embolism
CPT/HCPCS: 36415; 36430; 80048; 80053; 82728; 83540; 83550; 85025; 85027; 85610; 86803; 86850; 86900; 86901; 86922; 87389; 99285-25; G0378; P9058

== ENCOUNTER 2025-01-03 12:10 | Day surgery (SDC) | payer OTHER ==
[2025-01-03] MEDS: IRON DEXTRAN COMPLEX 1,000 MG in SODIUM CHLORIDE 250 ML IVPB ONE (12:24)
[2025-01-03 16:40] VITALS: RESP 18; TEMP 98.4
[2025-01-03 16:42] VITALS: BP 137/72; PULSE 75
== END 2025-01-03 14:30 | disposition home or self-care (01) ==
LOC: JONCCHEMO 12:10
PROVIDERS: ATTEND Internal Medicine Hematology & Oncology
PROC: 3E033GC Introduction of Other Therapeutic Substance into Peripheral Vein, Percutaneous Approach (ICD-10-PCS; principal; 2025-01-03)
DX: D50.9 Iron deficiency anemia, unspecified (principal)
CPT/HCPCS: 96365; J1750